=== PATIENT | male | born 1990 | race Caucasian/White ===

== ENCOUNTER 2019-11-14 21:08 | Emergency (ER) | payer OTHER ==
[~2019-11-14] VITALS: Ht 177.8 cm; Wt 77.1 kg
[2019-11-15] MEDS ORDERED: TUSNEL LIQUID178 ML PO (00:23)
[2019-11-15] MEDS ORDERED: XOFLUZA40 MG PO (00:23)
[2019-11-15] MEDS ORDERED: DOLOGEN CAPLET1 EACH PO (00:23)
== END 2019-11-15 00:38 | disposition home or self-care (01) ==
LOC: ER 21:08
DX: J11.1 Influenza due to unidentified influenza virus with other respiratory manifestations (principal)